=== PATIENT | male | born 1985 | race American Indian/Alaskan Native ===

== ENCOUNTER 2017-07-11 11:13 | Emergency (ER) | payer BC ==
[2017-07-11 13:02] LABS: Bilirubin,Urine NEG (Negative); Blood,Urine NEG (Negative); Ketones,Urine NEG (Negative); Leukocyte Esterase,Urine NEG (Negative); Nitrite,Urine NEG (Negative); Protein,Urine <15 mg/dL mg/dL (Negative); Urobilinogen,Urine < 2.0 mg/dL (<2.0); WBC,Urine < 1.0 /HPF (0.0-6.0)
[2017-07-11 13:03] LABS: Basophils % (Auto) 0.4 % (0.0-1.8); Hematocrit 45.8 % (35.5-45.6); Hemoglobin 15.2 gm/dl (11.8-15.2); Mean Corpuscular HGB Conc 33 % (32-34); Mean Corpuscular Hemoglobin 29 pg (28-32); Mean Corpuscular Volume 86 fl (84-94); Platelet Count 245 K/mm3 (140-440); Red Blood Count 5.31 M/mm3 (3.65-5.03); Red Cell Distribution Width 13.6 % (13.2-15.2); White Blood Count 6.1 K/mm3 (4.5-11.0)
--- NOTE | 2017-07-11 13:12 | Cat Scan Report ---
CT HEAD WITHOUT CONTRAST: 07/11/17 11:13:00 CLINICAL: Daily nose bleeds with dizziness. TECHNIQUE: 2.5-mm noncontrast scans. COMPARISON:None FINDINGS: The ventricles and sulci are normal for age. No abnormal density. No mass or mass effect. No hemorrhage, edema or extra-axial collection. The sinuses are clear. Nasal septum is intact and deviated to the left. The imaged portions of the nasal passages and nasopharynx are normal. Normal orbits and soft tissues. The calvarium and skull base are intact. IMPRESSION: Normal head CT. Deviation of the nasal septum to the left. No nasal mass is identified involving the imaged portions of the nasal passages and nasopharynx.
[2017-07-11 13:22] LABS: Alanine Aminotransferase 42 units/L (7-56); Albumin 4.7 g/dL (3.9-5); Albumin/Globulin Ratio 1.6 %; Alkaline Phosphatase 47 units/L (35-129); Anion Gap 18 mmol/L; Blood Urea Nitrogen 14 mg/dL (9-20); Calcium 8.9 mg/dL (8.4-10.2); Carbon Dioxide 22 mmol/L (22-30); Chloride 100.5 mmol/L (98-107); Glucose 85 mg/dL (75-100); Potassium 4.7 mmol/L (3.6-5.0); Sodium 136 mmol/L (137-145); Total Protein 7.7 g/dL (6.3-8.2)
[2017-07-11 13:35] LABS: Bilirubin,Direct < 0.2 mg/dL (0-0.2); Bilirubin,Indirect 0.1 mg/dL
--- NOTE | 2017-07-11 14:43 | Emergency Department Report ---
Entered by BURT JONES, acting as scribe for JUAN RAMSEY PA. HPI - General Chief Complaint: Pain General Time Seen by Provider: 07/11/17 12:20 - HPI HPI: 31 y/o male presents to the ED c/o general pain x 1 month. Associated symptoms include nosebleeds and headache but he denies fever, chills, nausea and vomiting. Patient states he had nosebleeds everyday for one week. No alleviating or aggravating factors. NKDA. Denies any weakness. Denies any abdominal, chest pain, nausea vomiting in or diarrhea. Dnies vomiting blood or blood from rectum. Pain is generalized and on and off and no pain at present. ED Past Medical Hx - Past Medical History Previous Medical History?: No - Surgical History Past Surgical History?: No - Family History Family history: no significant - Social History Smoking Status: Current Every Day Smoker Substance Use Type: None Other Social History: Single - Medications Home Medications: Home Medications Medication Instructions Recorded Confirmed Last Taken Type Lisinopril [Zestril TAB] 5 mg PO QDAY #30 tablet 05/19/14 Unknown Rx Promethazine [Phenergan] 25 mg PO Q6H PRN #14 tablet 05/19/14 Unknown Rx Cetirizine HCl [ZyrTEC] 10 mg PO QDAY #14 capsule 07/11/17 Unknown Rx Fluticasone [Flonase] 1 spray NS QDAY #1 bottle 07/11/17 Unknown Rx Ketoconazole 2% [Nizoral] 15 gm TP BID #1 tube 07/11/17 Unknown Rx ED Review of Systems ROS: Stated complaint: DIZZINESS Other details as noted in HPI Comment: All other systems reviewed and negative Constitutional: other (general pain). denies: chills, fever Eyes: denies: eye pain, vision change ENT: epistaxis (episodic), congestion. denies: ear pain, throat pain, dental pain Respiratory: no symptoms reported Cardiovascular: denies: chest pain, palpitations, edema, syncope Gastrointestinal: denies: abdominal pain, nausea, vomiting, diarrhea, constipation, hematemesis, melena Genitourinary: denies: urgency, dysuria, frequency, hematuria, discharge, testicular pain, testicular mass Musculoskeletal: arthralgia, myalgia. denies: back pain Skin: denies: rash Neurological: headache Physical Exam - Physical Exam Vital Signs: Vital Signs 07/11/17 11:17 Temperature 98.9 F Pulse Rate 87 Respiratory 20 Rate Blood Pressure 140/95 O2 Sat by Pulse 100 Oximetry General: This is a 31-year-old male well-nourished well-developed in no acute distress Physical Exam: Head: Normocephalic atraumatic Mouth: Moist, no pharyngeal exudate or erythema. Uvula is midline and oral airway is patent. Neck: Supple, no C-spine tenderness, no tracheal deviation. Nontender to palpate. No adenopathy Ears: Bilateral TMs congested. Bilateral EAC without any redness swelling or drainage. Eyes: Bilateral pupils equal and reactive to light, bilateral EOM intact. Bilateral sclera and conjunctiva without injection. Normal accommodation Nose: Mucosa moist. Nose etythema, congested, clear drainage. Maxillary and frontal sinus non-tender to palpate. No active bleeding from nose. Nose then tender to palpate with no deformity except nasoseptal deviation. Lungs: Clear to auscultate bilaterally no rhonchi wheezes or rales. Normal work of breathing nose Extremity; No CCE. +2 pulses. No clubbing or cyanosis. No neurovascular compromise Cardiovascular: S1-S2, regular rate rhythm. No murmurs. Skin: clean and dry. Hypopigmentation area to posterior and anterior thorax. Psych: Normal mood and behavior Abdomen: Soft, nontender to palpate positive bowel sounds in all quadrants Back: No vertebral tenderness, no saddle anesthesia, no paraspinal tenderness. Full range of motion and normal inspection. Neurological: Alert and oriented 3, GCS of 15. Speech is clear and fluid, normal gait. negative pronator drift,Negative Romberg. No motor or sensory deficit. ED Course Vital Signs 07/11/17 11:17 Temperature 98.9 F Pulse Rate 87 Respiratory 20 Rate Blood Pressure 140/95 O2 Sat by Pulse 100 Oximetry - Reevaluation(s) Reevaluation #1: 07/11/17 14:21 had uneventful ED stay ED Medical Decision Making - Lab Data Result diagrams: 07/11/17 12:51 07/11/17 12:51 Lab Results 07/11/17 07/11/17 07/11/17 Range/Units 12:50 12:51 12:51 WBC 6.1 (4.5-11.0) K/mm3 RBC 5.31 H (3.65-5.03) M/mm3 Hgb 15.2 (11.8-15.2) gm/dl Hct 45.8 H (35.5-45.6) % MCV 86 (84-94) fl MCH 29 (28-32) pg MCHC 33 (32-34) % RDW 13.6 (13.2-15.2) % Plt Count 245 (140-440) K/mm3 Lymph % (Auto) 36.0 H (13.4-35.0) % [place] % (Auto) 9.2 H (0.0-7.3) % Eos % (Auto) 1.0 (0.0-4.3) % Baso % (Auto) 0.4 (0.0-1.8) % Lymph # 2.2 (1.2-5.4) K/mm3 Stanton # 0.6 (0.0-0.8) K/mm3 Eos # 0.1 (0.0-0.4) K/mm3 Baso # 0.0 (0.0-0.1) K/mm3 Seg Neutrophils % 53.4 (40.0-70.0) % Seg Neutrophils # 3.2 (1.8-7.7) K/mm3 Sodium 136 L (137-145) mmol/L Potassium 4.7 (3.6-5.0) mmol/L Chloride 100.5 (98-107) mmol/L Carbon Dioxide 22 (22-30) mmol/L Anion Gap 18 mmol/L BUN 14 (9-20) mg/dL Creatinine 0.7 L (0.8-1.5) mg/dL Estimated GFR > 60 ml/min BUN/Creatinine Ratio 20.00 % Glucose 85 (75-100) mg/dL Calcium 8.9 (8.4-10.2) mg/dL Total Bilirubin 0.30 (0.1-1.2) mg/dL Direct Bilirubin < 0.2 (0-0.2) mg/dL Indirect Bilirubin 0.1 mg/dL AST 39 (5-40) units/L ALT 42 (7-56) units/L Alkaline Phosphatase 47 (35-129) units/L Total Protein 7.7 (6.3-8.2) g/dL Albumin 4.7 (3.9-5) g/dL Albumin/Globulin Ratio 1.6 % Urine Color Colorless (Yellow) Urine Turbidity Clear (Clear) Urine pH 6.0 (5.0-7.0) Ur Specific [place] 1.003 (1.003-1.030) Urine Protein <15 mg/dl (Negative) mg/dL Urine Glucose (UA) Neg (Negative) mg/dL Urine Ketones Neg (Negative) mg/dL Urine Blood Neg (Negative) Urine Nitrite Neg (Negative) Urine Bilirubin Neg (Negative) Urine Urobilinogen < 2.0 (<2.0) mg/dL Ur Leukocyte Esterase Neg (Negative) Urine WBC (Auto) < 1.0 (0.0-6.0) /HPF Urine RBC (Auto) 1.0 (0.0-6.0) /HPF - Radiology Data Radiology results: report reviewed CT scan of the had without contrast revealed no acute findings. Positive for left nasal septum deviation - Medical Decision Making ED course: Patient here reports that he's been having generalized pain and feeling ill for months. 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 He states that he's been having nosebleeds off and on but it's been more over the last week. Physical findings normal except patient with nasal sinusitis. CBC and CMP is within normal limits, UA within normal limits. CT scan finding for positive left nasal septum deviation otherwise normal. These results were discussed the patient a voice diagnosis and treatment plan. Patient also with incidental findings and physical exam for continued vessel color and I instructed him that I'll prescribe antifungal medication but he'll need to follow up with progressive assembler and fitter for further evaluation and treatment. Diagnostic/labs: CT scan of the brain without contrast revealed no acute findings. Chronic findings for left nasal septum deviation. CBC, CMP and urinalysis within normal limits Assessment/plan 1. Tinea vesicolor 2. Nasal sinusitis 3. Episodic epistaxis 4. Body ache Patient given referral to primary care physician and progressive assembler and fitter as requested. prescription for ketoconazole for continued collar and to follow- up with progressive assembler and fitter, prescription for Zyrtec and Flonase for nasal sinusitis. Critical care attestation.: If time is entered above; I have spent that time in minutes in the direct care of this critically ill patient, excluding procedure time. ED Disposition Clinical Impression: Tinea versicolor, Body aches, Nasal septal deviation, Frequent epistaxis Sinusitis nasal Qualifiers: Sinusitis location: unspecified location Chronicity: unspecified Qualified Code (s): J32.9 - Chronic sinusitis, unspecified Disposition: DC-01 TO HOME OR SELFCARE Is pt being admited?: No Does the pt Need Aspirin: No Condition: Stable Instructions: Epistaxis (ED), Sinusitis (ED), Arthralgia (ED), Tinea Versicolor (ED) Additional Instructions: Please use ketoconazole to place on fungal rash Use Zyrtec and Flonase for nasal sinusitis Follow-up with primary care doctor, ear nose and throat doctor and progressive assembler and fitter as instructed but call your insurance company first to make sure that these doctors are covered under your insurance. Prescriptions: Cetirizine HCl [ZyrTEC] 10 mg PO QDAY #14 capsule Fluticasone [Flonase] 1 spray NS QDAY #1 bottle Ketoconazole 2% [Nizoral] 15 gm TP BID #1 tube Referrals: JERRY NARVAEZ MD [Staff Physician] - 3-5 Days DANIELLE GOINS MD [Staff Physician] - 3-5 Days JOSEFA HOLLIS MD [Staff Physician] - 2-3 Days Forms: Work/School Release Form(ED) This documentation as recorded by the ROBERT whalen ELIZABETH,accurately reflects the service I personally performed and the decisions made by me,JUAN RAMSEY PA.
[2017-07-11 15:20] VITALS: BP 118/70
== END 2017-07-11 15:25 | disposition home or self-care (01) ==
LOC: ED 11:13
DX: B36.0 Pityriasis versicolor (principal); M79.1 Myalgia; J34.2 Deviated nasal septum; R04.0 Epistaxis; J32.9 Chronic sinusitis, unspecified; F17.200 Nicotine dependence, unspecified, uncomplicated
CPT/HCPCS: 36415; 70450; 80048; 80074; 81001; 85025

== ENCOUNTER 2018-05-27 12:27 | Emergency (ER) | payer BC ==
[2018-05-27 12:39] VITALS: BP 135/101
--- NOTE | 2018-05-27 15:17 | Emergency Department Report ---
ED Back Pain/Injury HPI - General Chief Complaint: Back Pain/Injury Stated Complaint: BACK PAIN Time Seen by Provider: 05/27/18 14:59 Source: patient Limitations: No Limitations - History of Present Illness Initial Comments: Patient is a 32-year-old male who has had low back pain for several months. 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 Patient states only 2 out of 10 in severity. There is more when he is standing and walking when he is at work. Patient denies any urinary symptoms. Patient denies trauma. - Related Data Previous Rx's Medication Instructions Recorded Last Taken Type Lisinopril [Zestril TAB] 5 mg PO QDAY #30 tablet 05/19/14 Unknown Rx Promethazine [Phenergan] 25 mg PO Q6H PRN #14 tablet 05/19/14 Unknown Rx Cetirizine HCl [ZyrTEC] 10 mg PO QDAY #14 capsule 07/11/17 Unknown Rx Fluticasone [Flonase] 1 spray NS QDAY #1 bottle 07/11/17 Unknown Rx Ketoconazole 2% [Nizoral] 15 gm TP BID #1 tube 07/11/17 Unknown Rx Ibuprofen [Motrin] 800 mg PO Q8HR PRN #20 tablet 05/27/18 Unknown Rx methOCARBAMOL [Robaxin TAB] 500 mg PO Q6H PRN #15 tablet 05/27/18 Unknown Rx Allergies Allergy/AdvReac Type Severity Reaction Status Date / Time Penicillins Allergy Anaphylaxis Verified 05/18/14 22:44 ED Review of Systems ROS: Stated complaint: BACK PAIN Other details as noted in HPI Comment: All other systems reviewed and negative ED Past Medical Hx Family history: no significant family history ED Back Pain Physical Exam - Exam General: Vital signs noted. No distress. Alert and acting appropriately. Back/Abdomen: Yes Perilumbar Tenderness, No Abdominal Tenderness, No Perithoracic Tenderness, No Sacroiliac Tenderness, No Flank Tenderness, No Straight Leg Raise Pain Neuro: Yes Normal Sensation, Yes Normal DTR's, Yes Normal Gait, No Motor Weakness ED Course Vital Signs 05/27/18 12:37 Temperature 98.1 F Pulse Rate 70 Respiratory 16 Rate Blood Pressure 135/101 O2 Sat by Pulse 97 Oximetry ED Medical Decision Making - Medical Decision Making The patient is a nonmedical emergency. The patient does have [employer] insurance therefore the patient will be treated today. Patient also given [facility] information for problems such as this in the future. Critical care attestation.: If time is entered above; I have spent that time in minutes in the direct care of this critically ill patient, excluding procedure time. ED Disposition Clinical Impression: Lumbar strain Qualifiers: Encounter type: initial encounter Qualified Code(s): S39.012A - Strain of muscle, fascia and tendon of lower back, initial encounter Disposition: TO HOME OR SELFCARE Is pt being admited?: No Does the pt Need Aspirin: No Condition: Stable Instructions: Muscle Strain (ED) Referrals: [facility] [Outside] - 3-5 Days
== END 2018-05-27 15:27 | disposition home or self-care (01) ==
LOC: ED 12:27
DX: S39.012A Strain of muscle, fascia and tendon of lower back, initial encounter (principal); Z88.0 Allergy status to penicillin; X58.XXXA Exposure to other specified factors, initial encounter; Y93.89 Activity, other specified; Y99.0 Civilian activity done for income or pay; Y92.59 Other trade areas as the place of occurrence of the external cause
CPT/HCPCS: 99282